=== PATIENT | female | born 1955 | race Caucasian/White ===

== ENCOUNTER 2024-10-09 12:12 | Day surgery (SDC) | payer MEDICARE ==
[2024-10-09] MEDS ORDERED: methylPREDNISolone acetate IM ONE (12:13)
[2024-10-09] MEDS ORDERED: LIDOCAINE HCL 2% 100 MG/5 ML IJ ONE (12:13)
[2024-10-09] MEDS ORDERED: propofoL IV ONE (15:07)
[2024-10-09] MEDS ORDERED: Lactated Ringers 1,000 ML IV ONE (16:37)
--- NOTE | 2024-10-09 21:00 | XRAY ---
Indication: Bilateral L4-S1 MBB. Intraoperative fluoroscopy provided for 44 seconds. 3 digital spot image submitted for interpretation demonstrates posterior needle tips projecting over expected left and right L4-S1 nerve roots. Correlate with intraoperative findings/report. Incidental incompletely visualized multilevel bilateral spinal hardware.
--- NOTE | 2024-10-09 21:23 | XRAY ---
44 seconds of fluoroscopy was used in surgery for a bilateral L4-S1 MBB.
== END 2024-10-09 15:47 | disposition home or self-care (01) ==
LOC: SDC-PAIN 12:12
PROVIDERS: ATTEND Psychiatry & Neurology Pain Medicine
DX: M47.817 Spondylosis without myelopathy or radiculopathy, lumbosacral region (principal)
CPT/HCPCS: 64493; 64494; 72020; J1010; J2704